=== PATIENT | male | born 1990 | race Caucasian/White ===

== ENCOUNTER 2017-01-15 17:04 | Emergency (ER) | payer MEDICARE, OTHER ==
[2017-01-15 17:17] VITALS: BP 144/73
[2017-01-15] MEDS ORDERED: Meclizine TAB* 12.5 MG PO ONE (18:27)
[2017-01-15] MEDS ORDERED: Ipratropium 0.5MG/2.5ML NEB* 0.5 MG/2.5 ML NEB.SOLN INH ONE (18:38)
[2017-01-15] MEDS ORDERED: Albuterol 2.5 MG/3 ML NEB.SOL* (0.083%) INH ONE (18:38)
--- NOTE | 2017-01-15 21:38 | UC ---
daiana Silva Timothy, scribed for Rachel Melendez DO on 01/15/17 at 1752 . Dizzy HPI HPI Summary: Davis Rivera is a 26 yo male presenting to [facility] with dizziness since 01/11/17. Pt saw his PCP 01/13/17 for constant ache CP to r/o cardiac issues. Pt denies CP today, but states he is feeling dizzy and "not well", with slight cough, wheezing, runny nose, postnasal drip. He states his vision is blurry and out of focus, and he is diaphoretic. He has the sensation that objects are warping in and out, and sometimes the room spins (5 or 6 times in the past 4 days). He is not in any current pain. He states there are no aggravating or alleviating factors. His mother is in room and states he has anxiety, which is a chronic issue. He experienced nausea and vomiting on 01/11 and 01/12. He denies DYKES, confusion, hearing changes, weakness, facial droop, or any other Sx. His MHx includes asthma, and marijuana and tobacco use. His PCP is Dr. Zarate. - History Of Current Complaint Stated Complaint: DIZZINESS Time Seen by Provider: 01/15/17 17:55 Hx Obtained From: Patient Onset/Duration: Gradual Onset, Lasting Days, Still Present Timing: Constant Severity Initially: Moderate Severity Currently: Moderate Pain Intensity: 0 Pain Scale Used: 0-10 Numeric Character: Room Spinning, Dizzy Aggravating Factor(s): Nothing Alleviating Factor(s): Nothing Associated Signs And Symptoms: Positive: Nausea, Vomiting, Chest Pain - resolved , Visual Changes - Risk Factors Cardiac Risk Factors: Smoking, Family History - no heart attacks under 50 years of age CVA Risk Factor: Smoking - Allergies/Home Medications Allergies/Adverse Reactions: Allergies Allergy/AdvReac Type Severity Reaction Status Date / Time No Known Allergies Allergy Verified 03/12/15 08:25 PMH/Surg Hx/FS Hx/Imm Hx Respiratory History Of: Reports: Asthma - Surgical History Surgical History: Yes Surgery Procedure, Year, and Place: right elbow - Family History Known Family History: Positive: Cardiac Disease - at 52, Hypertension, Diabetes, Other - lung CA - Social History Occupation: Employed Full-time Lives: With Family Alcohol Use: Occasionally Substance Use Type: Marijuana Substance Use Comment - Amount & Last Used: occ usage Smoking Status (MU): Heavy Every Day Tobacco Smoker Type: Cigarettes Amount Used/How Often: 1/2 ppd Length of Time of Smoking/Using Tobacco: age 17 Have You Smoked in the Last Year: Yes Cessation Counseling: Counseled 3+Min - 10 Min Review of Systems Constitutional: Other - diaphoresis Skin: Negative Eyes: Blurred Vision - room spinning ENT: Negative Respiratory: Cough Cardiovascular: Chest Pain - ache Gastrointestinal: Vomiting, Other - nausea Genitourinary: Negative Motor: Negative Neurovascular: Negative Musculoskeletal: Negative Neurological: Other - dizziness Psychological: Anxious All Other Systems Reviewed And Are Negative: Yes Physical Exam Triage Information Reviewed: Yes Appearance: Well-Appearing, No Pain Distress, Well-Nourished Vital Signs: Initial Vital Signs Temp 99.3 F 01/15/17 17:11 Pulse 84 01/15/17 17:11 Resp 20 01/15/17 17:11 BP 144/73 01/15/17 17:11 Pulse Ox 100 01/15/17 17:11 Vital Signs Reviewed: Yes Eyes: Positive: Conjunctiva Clear. Negative: Discharge ENT: Positive: Hearing grossly normal, Pharynx normal, Nasal congestion, Nasal drainage, TM bulging - fluid behind TM bilaterally, right side worse than left. Negative: Tonsillar swelling, Tonsillar exudate, Muffled/hoarse voice Neck: Positive: Supple, Nontender Respiratory: Positive: Lungs clear, No respiratory distress, No accessory muscle use, Wheezing Cardiovascular: Positive: RRR, No Murmur Abdomen Description: Positive: Nontender, Soft. Negative: Distended, Guarding Bowel Sounds: Positive: Present Musculoskeletal Exam: Normal Neurological: Positive: Alert, Muscle Tone Normal, Other: - A&Ox3, CN II-XII INTACT, SENSORY MOTOR INTACT, REFLEXES INTACT, NO CEREBELLAR SIGNS, FACIAL SYMMETRY, NEGATIVE ROMBERG, NORMAL GAIT. 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 Non-Paretic Hand: Both Correctly Best Gaze (Only Horizontal Eye Movement): Normal Visual Field Testing: No Visual Loss Facial Paresis-Pt to Smile & Close Eyes or Grimace Symmetry: Normal/Symmetrical Motor Function - Right Arm: No Drift-Holds 10 Seconds Motor Function - Left Arm: No Drift-Holds 10 Seconds Motor Function - Right Leg: No Drift-Holds 10 Seconds Motor Function - Left Leg: No Drift-Holds 10 Seconds Limb Ataxia-Must be out of Proportion to Weakness Present: Absent Sensory (Use Pinprick to Test Arms/Legs/Trunk/Face): Normal Best Language (Describe Picture, Name Items): No Aphasia Dysarthria (Read Several Words): Normal Extinction and Inattention: No Abnormality Total Score: 0 Re-Evaluation - Re-Evaluation First Eval Re-Evaluation Time: 18:28 Change: Unchanged Comment: Discussed EKG results and current course of Tx. Pt is agreeable and had his questions answered. Second Eval Re-Evaluation Time: 19:19 Change: Improved Comment: Pt is receiving breathing treatment. His condition has improved, his wheezing is resolved. Third Eval Re-Evaluation Time: 19:32 Change: Improved Comment: pt's visual disturbances/room spinning resolved s/p meclizine. Pt is agreeable with current course of Tx. Dizzy Course/Dx - Course Course Of Treatment: Davis Rivera is a 26 yo male presenting to [facility] with dizziness and "unwell feeling" since 01/11/17. After clinical examination and review of his EKG, he will be discharged home with bronchitis, URI, and vertigo , with appropriate instructions. - Differential Dx/Diagnosis Differential Diagnosis/HQI/PQRI: Anxiety, Benign Paroxysmal Positional Vertigo, Labyrinthitis Provider Diagnoses: bronchitis, URI, vertigo Discharge - Discharge Plan Condition: Stable Disposition: HOME Prescriptions: Albuterol 2.5MG/3ML (0.083%)* [Ventolin 2.5 MG/3 ML NEB.SHARON*] 2.5 mg INH Q4H PRN #1 box PRN Reason: Sob/Wheezing Albuterol HFA INHALER* [Ventolin HFA Inhaler*] 2 puff INH Q4H PRN #1 mdi PRN Reason: Sob/Wheezing Meclizine HCl [Meclizine 25] 25 mg PO QID PRN #20 tab PRN Reason: Dizziness Patient Education Materials: Vertigo (ED), Upper Respiratory Infection (ED), Acute Bronchitis (ED), Meclizine (By mouth) Forms: *Work Release Referrals: AUBREY Henderson [Primary Care Provider] - 2 Days Additional Instructions: INHALED BRONCHODILATORS: You have received a prescription for an inhaled bronchodilator -- a medication which stimulates the airways in the lung to dilate. This improves the flow of air in asthma, bronchitis, and emphysema. These medicines have some similarity to adrenaline, and can cause similar side effects: shakiness, racing heart, and a sense of nervousness. These side effects decrease with time. Contact your doctor if these side effects are severe. Do not over-use the medicine. Too-frequent use of the inhaler may make it ineffective. Call your doctor if the inhaler is not controlling your symptoms at the prescribed doses. Please follow up with your primary care physician regarding your visit to urgent care today. Return to urgent care or the emergency department with any new or recurring symptoms. The documentation as recorded by the daiana stoddard Timothy accurately reflects the service I personally performed and the decisions made by , Rachel Melendez DO.
== END 2017-01-15 19:46 | disposition home or self-care (01) ==
LOC: UCEAST 17:04
DX: J40 Bronchitis, not specified as acute or chronic (principal); J06.9 Acute upper respiratory infection, unspecified; R42 Dizziness and giddiness; F12.90 Cannabis use, unspecified, uncomplicated; F17.210 Nicotine dependence, cigarettes, uncomplicated; Z71.6 Tobacco abuse counseling
CPT/HCPCS: 93005; 99212; A9270-GY; G0463; J7644